=== PATIENT | female | born 1995 | race Caucasian/White ===

== ENCOUNTER 2024-06-15 12:30 | Outpatient (CLI) ==
[~2024-06-15] VITALS: Ht 167.6 cm; Wt 136.4 kg
[2024-06-15] VITALS (9 sets, daily range): BP systolic 96–155; BP diastolic 46–85
[2024-06-15] MEDS ORDERED: ASPI81CH33 PO (12:58)
[2024-06-15] MEDS ORDERED: PRENTAB9 PO (12:58)
[2024-06-15] MEDS ORDERED: AMLO1TAB24 PO (12:58)
[2024-06-15] MEDS ORDERED: HOME MED LIST COMPLETE! XX SCH (13:05)
[2024-06-15 14:07] LABS: HEMATOCRIT 36.8 % (36.0-47.0); HEMOGLOBIN 11.8 g/dl (12.0-15.5); MEAN CORPUSCULAR HEMOGLOBIN 27.2 pg (27.0-33.0); MEAN CORPUSCULAR HGB CONC 32.1 g/dl (32.0-36.5); MEAN CORPUSCULAR VOLUME 84.8 fl (80.0-96.0); PLATELET COUNT, AUTOMATED 190 10^3/uL (150-450); RED BLOOD COUNT 4.34 10^6/uL (4.00-5.40); WHITE BLOOD COUNT 7.7 10^3/uL (4.0-10.0)
[2024-06-15 14:19] LABS: TOTAL PROTEIN,RANDOM URINE 14.4 MG/DL (0.0-14.0)
[2024-06-15 14:24] LABS: CREATININE,RANDOM URINE 75.7 MG/DL
[2024-06-15 14:36] LABS: URIC ACID 4.9 MG/DL (3.1-7.8)
[2024-06-15 14:38] LABS: LDH LACTATE DEHYDROGENASE 168 U/L (120-246)
[2024-06-15 14:39] LABS: ALT/SGPT 15 U/L (7.0-40); AST/SGOT 11 U/L (<34); BILIRUBIN,TOTAL 0.4 MG/DL (0.3-1.2); CREATININE FOR GFR 0.62 MG/DL (0.55-1.30); GLOMERULAR FILTRATION RATE > 60.0 (>60)
== END 2024-06-15 15:35 | disposition home or self-care (01) ==
LOC: M LDO 12:30
PROVIDERS: ATTEND Advanced Practice Midwife
DX: O10.013 Pre-existing essential hypertension complicating pregnancy, third trimester (principal); O99.353 Diseases of the nervous system complicating pregnancy, third trimester; G43.909 Migraine, unspecified, not intractable, without status migrainosus; Z3A.38 38 weeks gestation of pregnancy; Z88.8 Allergy status to other drugs, medicaments and biological substances
CPT/HCPCS: 36415; 59025; 76815; 82247; 82570; 83615; 84156; 84450; 84460; 84550; 85027; 86780; 86850; 86900; 86901; G0463

== ENCOUNTER 2024-06-18 14:12 | Inpatient (IN) | payer OTHER ==
[~2024-06-18] VITALS: Ht 167.6 cm; Wt 138.8 kg
[~2024-06-18 14:12] MED LIST: AMLO1TAB24 PO; ASPI81CH33 PO; PRENTAB9 PO
[2024-06-18 14:34] VITALS: BP 127/84
[2024-06-18] MEDS ORDERED: HOME MED LIST COMPLETE! XX SCH (14:40)
[2024-06-18 15:04] LABS: HEMATOCRIT 34.7 % (36.0-47.0); HEMOGLOBIN 11.3 g/dl (12.0-15.5); MEAN CORPUSCULAR HEMOGLOBIN 27.4 pg (27.0-33.0); MEAN CORPUSCULAR HGB CONC 32.6 g/dl (32.0-36.5); MEAN CORPUSCULAR VOLUME 84.2 fl (80.0-96.0); PLATELET COUNT, AUTOMATED 200 10^3/uL (150-450); RED BLOOD COUNT 4.12 10^6/uL (4.00-5.40); WHITE BLOOD COUNT 6.5 10^3/uL (4.0-10.0)
[2024-06-18] MEDS ORDERED: TRANEXAMIC ACID INJection 1,000 MG in NS 100 ML IV PRN (15:50)
[2024-06-18] MEDS ORDERED: CARBOPROST TROMETHAMINE 250 MCG/ML AMP IM PRN (15:50)
[2024-06-18] MEDS ORDERED: LIDOCAINE 1% MDV 20ML VIAL INFIL PRN (15:50)
[2024-06-18] MEDS ORDERED: OXYTOCIN DRIP 30 UNITS in IV 1 EA IV PRN (15:50)
[2024-06-18 16:07] LABS: HEPATITIS C VIRUS ABY INDEX 0.18 INDEX (<0.8)
[2024-06-18] MEDS: ceFAZolin SOD 2 GM in IV 1 EA IV STA (16:20)
[2024-06-18] MEDS: miSOPROStol 50MCG 1/2 TABLET PO SCH (16:20)
[2024-06-18 16:45] LABS: CREATININE,RANDOM URINE 18.6 MG/DL
[2024-06-18 16:51] LABS: TOTAL PROTEIN,RANDOM URINE < 6.0 MG/DL (0.0-14.0)
[2024-06-18 20:53] VITALS: BP 120/72
[2024-06-19] VITALS (38 sets, daily range): BP systolic 103–154; BP diastolic 49–92; O2SAT 98
[2024-06-19] MEDS: ceFAZolin SOD 1 GM in DEXTROSE 5% (D5W) ADV/MINI-BAG 50 ML IV SCH (00:24)
[2024-06-19] MEDS: PROMETHAZINE 25MG/ML 1ML VIAL IV ONE (03:54)
[2024-06-19] MEDS: LR 1,000 ML IV SCH (03:55)
[2024-06-19] MEDS: BUTORPHANOL 2 MG/ML 1ML VIAL IV ONE (03:55)
[2024-06-19] MEDS ORDERED: EPIDURAL/PCA KEYS XX PRN (07:50)
[2024-06-19] MEDS ORDERED: diphenhydrAMINE 50MG/ML VIAL IV PRN (07:50)
[2024-06-19] MEDS ORDERED: NALOXONE INJ 0.4MG/1ML VIAL IV PRN (07:50)
[2024-06-19] MEDS ORDERED: LR 500 ML IV PRN (07:50)
[2024-06-19] MEDS ORDERED: ONDANSETRON 4MG 2ML VIAL IV PRN (07:50)
[2024-06-19] MEDS: LACTATED RINGER'S 1000 ML IV STA (07:54)
[2024-06-19] MEDS: FENTANYL/ROPIVACAINE/NACL BAG 100 ML EPIDURAL SCH (08:32)
[2024-06-19] MEDS: amLODIPine 5 MG TAB PO SCH (09:00)
[2024-06-19] MEDS: OXYTOCIN DRIP 30 UNITS in IV 1 EA IV SCH (10:23)
[2024-06-19] MEDS: ePHEDrine SULFATE 25 MG/5 ML(5MG/ML) SYRINGE IVP PRN (11:32)
[2024-06-19] MEDS ORDERED: ACETAMINOPHEN 500 MG TAB PO PRN (19:40)
[2024-06-19] MEDS ORDERED: DIBUCAINE 1% OINTMENT 30GM TOP PRN (19:40)
[2024-06-19] MEDS ORDERED: RHOGAM 300MCG (1500IU) INJ IM SCH (19:40)
[2024-06-19] MEDS: IBUPROFEN 600MG TAB PO PRN (21:23)
[2024-06-20 05:51] VITALS: BP 114/71; O2SAT 100
[2024-06-20 07:17] LABS: HEMATOCRIT 30.6 % (36.0-47.0); HEMOGLOBIN 9.9 g/dl (12.0-15.5); MEAN CORPUSCULAR HEMOGLOBIN 27.3 pg (27.0-33.0); MEAN CORPUSCULAR HGB CONC 32.4 g/dl (32.0-36.5); MEAN CORPUSCULAR VOLUME 84.3 fl (80.0-96.0); PLATELET COUNT, AUTOMATED 175 10^3/uL (150-450); RED BLOOD COUNT 3.63 10^6/uL (4.00-5.40); WHITE BLOOD COUNT 10.5 10^3/uL (4.0-10.0)
[2024-06-20 07:39] LABS: LDH LACTATE DEHYDROGENASE 239 U/L (120-246)
[2024-06-20 07:40] LABS: ALT/SGPT 14 U/L (7.0-40); AST/SGOT 21 U/L (<34); BILIRUBIN,TOTAL 0.3 MG/DL (0.3-1.2); CREATININE FOR GFR 0.66 MG/DL (0.55-1.30); GLOMERULAR FILTRATION RATE > 60.0 (>60)
[2024-06-20 07:44] LABS: URIC ACID 6.4 MG/DL (3.1-7.8)
[2024-06-20] MEDS ORDERED: ACET-683 PO (09:14)
[2024-06-20] MEDS ORDERED: COLA100C5 PO (09:14)
[2024-06-20] MEDS ORDERED: IBUP-1022 PO (09:14)
[2024-06-20] MEDS: PRENATAL VITAMINS CHEWABLE TABLET PO SCH (09:33)
[2024-06-20 18:00] VITALS: BP 120/73; O2SAT 100
[2024-06-20] MEDS: DOCUSATE SODIUM 100MG CAPSULE PO PRN (20:58)
[2024-06-21 06:00] VITALS: BP 104/63; O2SAT 97
[2024-06-21] MEDS ORDERED: MEASLES,MUMPS,RUBELLA VACCINE INJ (MMR-II) SC.IMMUN ONE (09:00)
[2024-06-21 09:25] VITALS: BP 138/80
== END 2024-06-21 16:50 | disposition home or self-care (01) | DRG 560 ==
LOC: M LDI 14:12 → M OBS 06-19 21:35
PROVIDERS: ADMIT Obstetrics & Gynecology; ATTEND Obstetrics & Gynecology
PROC: 3E0P7GC Introduction of Other Therapeutic Substance into Female Reproductive, Via Natural or Artificial Opening (ICD-10-PCS; 2024-06-18)
PROC: 3E033VJ Introduction of Other Hormone into Peripheral Vein, Percutaneous Approach (ICD-10-PCS; 2024-06-18)
PROC: 10E0XZZ Delivery of Products of Conception, External Approach (ICD-10-PCS; principal; 2024-06-19)
PROC: 0KQM0ZZ Repair Perineum Muscle, Open Approach (ICD-10-PCS; 2024-06-19)
DX: O10.02 Pre-existing essential hypertension complicating childbirth (principal); O99.824 Streptococcus B carrier state complicating childbirth; Z37.0 Single live birth; Z3A.38 38 weeks gestation of pregnancy; Z88.0 Allergy status to penicillin; O69.82X0 Labor and delivery complicated by other cord entanglement, without compression, not applicable or unspecified; O32.6XX0 Maternal care for compound presentation, not applicable or unspecified; O70.1 Second degree perineal laceration during delivery

== ENCOUNTER 2024-07-04 18:48 | Emergency (ER) | payer OTHER ==
[~2024-07-04] VITALS: Ht 167.6 cm; Wt 129.4 kg
[~2024-07-04 18:48] MED LIST changes: +ACET-683 PO; +COLA100C5 PO; +IBUP-1022 PO
[2024-07-04 19:04] VITALS: TEMP 98.7
[2024-07-04 20:03] LABS: APPEARANCE, URINE CLEAR (CLEAR); BACTERIA, URINE AUTO 1+ (NEGATIVE); BILIRUBIN, URINE AUTO NEGATIVE (NEGATIVE); BLOOD, URINE BLOOD 2+ (NEGATIVE); COLOR, URINE YELLOW (YELLOW); GLUCOSE, URINE (UA) AUTO NEGATIVE (NEGATIVE); KETONE, URINE AUTO NEGATIVE (NEGATIVE); LEUKOCYTE ESTERASE, URINE AUTO 1+ (NEGATIVE); MUCUS, URINE SMALL (NEGATIVE); NITRITE, URINE AUTO NEGATIVE (NEGATIVE); PROTEIN, URINE AUTO NEGATIVE (NEGATIVE); RBC, URINE AUTO 3 /HPF (0-3); SPECIFIC GRAVITY URINE AUTO 1.023 (1.002-1.035); SQUAMOUS EPITHELIAL CELL UR AU 1 /HPF (0-6); UROBILINOGEN, URINE AUTO 0.2 mg/dL (0.0-2.0); WBC, URINE AUTO 8 /HPF (0-3)
[2024-07-04 20:05] LABS: BASO # 0.1 10^3/uL (0.0-0.2); BASO % 0.8 % (0.0-1.0); EOS # 0.2 10^3/uL (0.0-0.5); EOS % 3.7 % (0.0-3.0); HEMATOCRIT 37.5 % (36.0-47.0); HEMOGLOBIN 11.9 g/dl (12.0-15.5); LYMPH # 1.8 10^3/uL (1.5-5.0); LYMPH % 28.3 % (24.0-44.0); MEAN CORPUSCULAR HEMOGLOBIN 26.7 pg (27.0-33.0); MEAN CORPUSCULAR HGB CONC 31.7 g/dl (32.0-36.5); MEAN CORPUSCULAR VOLUME 84.3 fl (80.0-96.0); MONO # 0.5 10^3/uL (0.0-0.8); MONO % 7.9 % (2.0-8.0); NEUTROPHILS # 3.6 10^3/uL (1.5-8.5); NEUTROPHILS % 58.8 % (36.0-66.0); PLATELET COUNT, AUTOMATED 271 10^3/uL (150-450); RED BLOOD COUNT 4.45 10^6/uL (4.00-5.40); WHITE BLOOD COUNT 6.2 10^3/uL (4.0-10.0)
[2024-07-04 20:31] LABS: ALBUMIN 3.4 G/DL (3.2-5.2); ALKALINE PHOSPHATASE 117 U/L (35-104); ALT/SGPT 18 U/L (7.0-40); AST/SGOT 12 U/L (<34); BILIRUBIN,DIRECT < 0.1 MG/DL (<0.4); BILIRUBIN,TOTAL 0.3 MG/DL (0.3-1.2); BLOOD UREA NITROGEN 10 MG/DL (9-23); CARBON DIOXIDE LEVEL 24 MMOL/L (20-31); CHLORIDE LEVEL 110 MMOL/L (98-107); CREATININE FOR GFR 0.76 MG/DL (0.55-1.30); GLOMERULAR FILTRATION RATE > 60.0 (>60); GLUCOSE, FASTING 94 MG/DL (60-100); POTASSIUM SERUM 4.1 MMOL/L (3.5-5.1); SODIUM LEVEL 144 MMOL/L (136-145)
[2024-07-04] MEDS ORDERED: RIZA10TA64 PO (22:06)
[2024-07-04 22:15] VITALS: BP 137/98; O2SAT 98
[2024-07-04] MEDS: RIZATRIPTAN MLT 10 MG TAB PO STA (22:22)
== END 2024-07-04 22:26 | disposition home or self-care (01) ==
LOC: M ED 18:48
DX: G43.909 Migraine, unspecified, not intractable, without status migrainosus (principal); I10 Essential (primary) hypertension; K59.00 Constipation, unspecified; Z88.0 Allergy status to penicillin; Z88.8 Allergy status to other drugs, medicaments and biological substances; Z79.1 Long term (current) use of non-steroidal anti-inflammatories (NSAID); Z79.899 Other long term (current) drug therapy